=== PATIENT | male | born 1965 | race Two or more races ===

== ENCOUNTER 2023-05-26 17:31 | Emergency (ER) | payer OTHER ==
[~2023-05-26] VITALS: Ht 170.2 cm; Wt 74.8 kg
[~2023-05-26 17:31] MED LIST: AMOX1TAB12 PO; ANTIVERT25 M1 PO; DICLOFENAC SODI50 MG PO; INTESTINEX1 CA1 PO; NASONEX17 GM NS; NORFLEX100MG PO; ZYRTEC10 MG PO
== END 2023-05-26 21:04 | disposition home or self-care (01) ==
LOC: ER 17:31
DX: M54.9 Dorsalgia, unspecified (principal)